=== PATIENT | female | born 1955 | race Caucasian/White ===

== ENCOUNTER → 2016-11-23 | Outpatient (CLI) | payer OTHER ==
--- NOTE | 2016-11-23 18:31 | PCVCIMAG ---
APPROVED REPORT Exam: Stress Echocardiogram Indication: abn EKG,DM,HTN,CHOL Patient Location: Echo lab Stress Nurse: Muna Velazquez RN Status: routine HR: 88 bpm Rhythm: NSR Medical History Medical History: Diabetes, HTN, Hyperlipidemia Cardiac Risk Factors: HTN, Hyperlipidemia, Diabetes (insulin) Previous Cardiac Procedures: NONE Pretest Chest Pain Characteristics: No chest pain Exercise History: Physically active Procedure The patient underwent an Exercise Stress Test using the Lars Protocol. Blood pressure, heart rate, and EKG were monitored. An Echocardiogram was performed by monogram technician in four stages in quad fashion. At peak stress, four selected images were obtained and placed side by side with resting images for comparison. Stress Test Details Stress Test: Exercise stress testing was performed using a Lars protocol. HR Resting HR: 88 bpmMax Heart Rate (APMHR): 159 bpm Max HR Achieved: 153 bpmTarget HR (85% APMHR): 135 bpm % of APMHR: 96 Recovery HR: 94 bpm HR response to stress: Normal HR response to stress BP Resting BP: 124/70 mmHg Max BP: 158/70 mmHg Recovery BP: 122/70 mmHg ECG Resting ECG: Sinus Rhythm- SHORT EPISODE A FIB SEEN AT REST Stress ECG: Sinus Rhythm ST Change: Non-ischemic Maximum ST Deviation: 1.1 mm Arrhythmia: Atrial fibrillation SEEN AT REST Recovery ECG: Sinus Rhythm Recovery ST Change: Non-ischemic Recovery Arrhythmia: None Clinical Reason for Termination: Maximal effort Stress Symptoms: NONE Exercise duration: 8 min 14 sec Highest Stage Achieved: Stage 3: 3.4 mph at 14% grade. Exercise capacity: 10.1 METs Overall Exercise Capacity for Age: Normal Scale: Active Angina Score: None Stress ECG Conclusion The patient exercised according to the LARS protocol for 8:14 minutes, achieving a work level of Max. METS: 10.1 The resting heart rate of 88 bpm kenya to a maximal heart rate of 153 This value represents 96% of the maximal, age-predicted heart rate. The resting blood pressure of 102/58 mmHg, kenya to a maximum blood pressure of 158/70 The exercise test was stopped due to fatigue. Lyons Treadmill Score is 2.5 which is Moderate risk. Pre-Stress Echo The resting Echocardiogram showed normal left ventricular contractility with an estimated Ejection Fraction of about 55-60%. Normal wall motion in all segments on baseline images. Post-Stress Echo The stress Echocardiogram showed normal left ventricular contractility with an estimated Ejection Fraction of about 65-70%. Normal augmentation of wall motion in all segments on post stress images. Clinical No clinical or ECG evidence for ischemia. Conclusion Clinical Response: Non-ischemic Exercise Capacity: Average Stress ECG Response: Non-ischemic Stress Echo Images: Non-ischemic No clinical, EKG or echocardiographic evidence for ischemia. No echocardiographic evidence for exercise induced ischemia. Atrial fibrillation was seen pre exercise but was not evoked during exercise. A monitor will be worn to check the frequency of atrial fibrillation episodes No prior study available for comparison. <Conclusion> No clinical, EKG or echocardiographic evidence for ischemia. No echocardiographic evidence for exercise induced ischemia. Atrial fibrillation was seen pre exercise but was not evoked during exercise. A monitor will be worn to check the frequency of atrial fibrillation episodes
== END | disposition home or self-care (01) ==
LOC: PCVCIMAG 14:23
PROVIDERS: ATTEND Internal Medicine Cardiovascular Disease
DX: I48.91 Unspecified atrial fibrillation (principal); E11.9 Type 2 diabetes mellitus without complications; E78.5 Hyperlipidemia, unspecified; I10 Essential (primary) hypertension; E78.00 Pure hypercholesterolemia, unspecified; R94.31 Abnormal electrocardiogram [ECG] [EKG]; Z95.5 Presence of coronary angioplasty implant and graft; Z79.82 Long term (current) use of aspirin
CPT/HCPCS: 93325; 93351

== ENCOUNTER → 2016-12-21 | Outpatient (CLI) | payer OTHER ==
--- NOTE | 2016-12-22 09:53 | PCVCIMAG ---
APPROVED REPORT Study performed: 12/21/2016 15:03:32 EXAM: Comprehensive 2D, Doppler, and color-flow Echocardiogram Patient Location: Echo lab Status: routine BSA: 1.97 HR: 75 bpm Rhythm: NSR Risk Factors: Cardiac Risk Factors: DM, Hyperlipidemia, HTN Indications Diabetes Atrial Fibrillation Hypertension/HDD 2D Dimensions LVEF(%): 81.49 (>50%) IVSd: 9.74 (7-11mm)LVOT Diam: 18.80 (18-24mm) LVDd: 46.58 mm PWd: 8.89 (7-11mm)Ascending Ao: 29.14 (22-36mm) LVDs: 23.22 (25-40mm) Left Atrium: 39.00 (27-40mm) Aortic Root: 26.32 mm LV Single Plane 4CH: 53.01 % LV Single Plane 2CH: 56.05 %Stoner's LVEF: 54.53 % Biplane EF: 54.2 % Volumes Left Atrial Volume (Systole) Single Plane 4CH: 50.54 mLSingle Plane 2CH: 63.85 mL Biplane LA Volume: 61.00 mLLA ESV Index: 31.00 mL/m2 Aortic Valve AoV Peak Erik.: 1.82 m/s AO Peak Gr.: 13.23 mmHgLVOT Max P.43 mmHg LVOT Max V: 1.22 m/s TREVON Vmax: 1.86 cm2 Mitral Valve E/A Ratio: 1.6 MV Decel. Time: 112.81 ms MV E Max Erik.: 0.87 m/s MV A Erik.: 0.54 m/s IVRT: 79.58 ms TDI E/Lateral E': 9.67E/Medial E': 10.88 Medial E' Erik.: 0.08 m/s Lateral E' Erik.: 0.09 m/s Pulmonary Valve PV Peak Erik.: 1.12 m/sPV Peak Gr.: 5.03 mmHg Pulmonary Vein P Vein S: 0.67 m/sP Vein A: 0.27 m/s P Vein D: 0.59 m/sP Vein A Dur.: 93.4 msec P Vein S/D Ratio: 1.14 Tricuspid Valve TR Peak Erik.: 2.56 m/s TR Peak Gr.: 26.12 mmHg TV Vmax: 0.64 m/sPA Pressure: 33.00 mmHg Left Ventricle The left ventricle is normal size. There is normal LV segmental wall motion. There is normal left ventricular wall thickness. Left ventricular systolic function is normal. The left ventricular ejection fraction is within the normal range. LVEF is 55-60%. The left ventricular diastolic function is normal. Right Ventricle The right ventricle is normal size. The right ventricular systolic function is normal. Atria Left atrium is borderline dilated. The right atrium size is normal. Aortic Valve The aortic valve is normal in structure. No aortic regurgitation is present. There is no aortic valvular stenosis. Mitral Valve The mitral valve is normal in structure. There is no mitral valve regurgitation noted. No evidence of mitral valve stenosis. Tricuspid Valve The tricuspid valve is normal in structure. Trace to mild tricuspid regurgitation with a PA pressure of 33mmHg. Pulmonic Valve The pulmonary valve is normal in structure. There is no pulmonic valvular regurgitation. Great Vessels The aortic root is normal in size. The ascending aorta is normal in size. IVC is normal in size and collapses with >50% inspiration Pericardium There is no pericardial effusion. There is no pleural effusion. <Conclusion> Left ventricular systolic function is normal. The left ventricular ejection fraction is within the normal range. LVEF is 55-60%. The left ventricular diastolic function is normal. The right ventricle is normal size. Left atrium is borderline dilated. The right atrium size is normal. The aortic valve is normal in structure. There is no mitral valve regurgitation noted. Trace to mild tricuspid regurgitation with a PA pressure of 33mmHg. There is no pericardial effusion.
== END | disposition home or self-care (01) ==
LOC: PCVCIMAG 15:03
PROVIDERS: ATTEND Internal Medicine Cardiovascular Disease
DX: I07.1 Rheumatic tricuspid insufficiency (principal); I48.0 Paroxysmal atrial fibrillation; I10 Essential (primary) hypertension; E78.5 Hyperlipidemia, unspecified; I25.10 Atherosclerotic heart disease of native coronary artery without angina pectoris; R93.1 Abnormal findings on diagnostic imaging of heart and coronary circulation; J44.9 Chronic obstructive pulmonary disease, unspecified; E11.9 Type 2 diabetes mellitus without complications; Z79.82 Long term (current) use of aspirin
CPT/HCPCS: 93306

== ENCOUNTER → 2018-01-03 | Outpatient (CLI) | payer OTHER ==
--- NOTE | 2018-01-03 19:01 | PCVCIMAG ---
APPROVED REPORT Study performed: 01/03/2018 14:11:10 EXAM: Comprehensive 2D, Doppler, and color-flow Echocardiogram Patient Location: Echo lab Status: routine BSA: 1.98 HR: 67 bpmBP: 124/74 mmHg Rhythm: NSR Other Information Study Quality: Adequate Risk Factors: Cardiac Risk Factors: HTN Indications Palpitations parox A fib 2D Dimensions LVEF(%): 71.86 (>50%) IVSd: 10.25 (7-11mm) LVDd: 43.32 mm PWd: 9.57 (7-11mm) LVDs: 25.65 (25-40mm) Left Atrium: 38.88 (27-40mm) Aortic Root: 26.62 mm LV Single Plane 4CH: 63.67 % LV Single Plane 2CH: 60.28 %Stoner's LVEF: 61.97 % Biplane EF: 62.6 % Volumes Left Atrial Volume (Systole) Single Plane 4CH: 71.34 mLSingle Plane 2CH: 53.10 mL LA ESV Index: 33.00 mL/m2 Aortic Valve AoV Peak Erik.: 1.71 m/s AO Peak Gr.: 11.64 mmHgLVOT Max P.68 mmHg LVOT Max V: 1.08 m/s Mitral Valve E/A Ratio: 1.8 MV Decel. Time: 210.16 ms MV E Max Erik.: 0.87 m/s MV A Erik.: 0.48 m/s IVRT: 93.43 ms Pulmonary Valve PV Peak Erik.: 0.98 m/sPV Peak Gr.: 3.86 mmHg Pulmonary Vein P Vein S: 0.47 m/sP Vein A: 0.32 m/s P Vein D: 0.62 m/sP Vein A Dur.: 138.4 msec P Vein S/D Ratio: 0.76 Tricuspid Valve TR Peak Erik.: 2.66 m/s TR Peak Gr.: 28.21 mmHg Left Ventricle The left ventricle is normal size. There is normal LV segmental wall motion. There is normal left ventricular wall thickness. Left ventricular systolic function is normal. The left ventricular ejection fraction is within the normal range. LVEF is 55-60%. The left ventricular diastolic function is normal. Right Ventricle The right ventricle is normal size. The right ventricular systolic function is normal. Atria The left atrium size is normal. The right atrium size is normal. Aortic Valve The aortic valve is normal in structure. No aortic regurgitation is present. There is no aortic valvular stenosis. Mitral Valve The mitral valve is normal in structure. Trace mitral regurgitation. No evidence of mitral valve stenosis. Tricuspid Valve The tricuspid valve is normal in structure. Mild tricuspid regurgitation with PAP of 35 mmHg. Pulmonic Valve The pulmonary valve is normal in structure. There is no pulmonic valvular regurgitation. Great Vessels The aortic root is normal in size. IVC is normal in size and collapses with >50% inspiration Pericardium There is no pericardial effusion. There is no pleural effusion. <Conclusion> The left ventricle is normal size. LVEF is 55-60%. The right ventricle is normal size. The left atrium size is normal. The aortic valve is normal in structure. Trace mitral regurgitation. Mild tricuspid regurgitation with PAP of 35 mmHg. The aortic root is normal in size. There is no pericardial effusion.
== END | disposition home or self-care (01) ==
LOC: PCVCIMAG 16:12
PROVIDERS: ATTEND Internal Medicine Cardiovascular Disease
DX: I07.1 Rheumatic tricuspid insufficiency (principal); I48.0 Paroxysmal atrial fibrillation; I10 Essential (primary) hypertension
CPT/HCPCS: 93306

== ENCOUNTER → 2018-03-20 | Outpatient (CLI) | payer OTHER ==
[~2018-03-20] MED LIST: BENZOCAINE ONE 20% MUCOSAL SPRAY.; IV NORMAL SALINE 500ML BAG 500 ML ONE; MIDAZOLAM HCL/PF 2 MG/2 ML VIAL. ONE; fentaNYL PF VIAL 100 MCG/2 ML VIAL ONE
--- NOTE | 2018-03-20 10:36 | PCVCIMAG ---
APPROVED REPORT Study performed: 03/20/2018 08:50:57 EXAM: Transesophageal Echocardiogram Patient Location: [facility] Room #: 1 Status: routine BSA: 1.98 HR: 77 bpmBP: 155/80 mmHg Rhythm: NSR Other Information Study Quality: Good Indications Atrial Fibrillation Echo Enhancing Agent Indication: Rule out Shunt Agent(s) / Amount(s) Used: Agitated Saline 10 cc Comments: Negative contrast study for shunt flow. Procedure After obtaining informed consent, patient underwent transesophageal echo in the [facility]. Type of Sedation : Conscious Sedation Sedation was administered by Ayana Schmid RN. Sedation start time: 09:51 Case end Time: 10:03 Sedation was achieved intravenously with: Versed (4mg) Fentanyl (100mcg) Transesophageal probe was inserted and advanced into esophagus without difficulty by Luís Li MD. Echo enhancement indication: R/O Septal defect. Echo enhancement agent administered: Agitated Saline The ESME was performed without complications. Throughout the procedure, the blood pressure, pulse oximetry, cardiac rhythm, and rate were monitored. The patient tolerated the procedure without adverse effects. Recovery from conscious sedation was uneventful and vital signs were stable. Left Ventricle The left ventricle is normal size. There is normal LV segmental wall motion. There is normal left ventricular wall thickness. Left ventricular systolic function is normal. The left ventricular ejection fraction is within the normal range. LVEF is 60-65%. This study is not technically sufficient to allow evaluation of the LV diastolic function. Right Ventricle The right ventricle is normal size. The right ventricular systolic function is normal. Atria The left atrium size is normal. No thrombus is visualized in the left atrium or appendage. Interatrial septum is intact without evidence of ASD or PFO. The right atrium size is normal. Aortic Valve The aortic valve is normal in structure. No aortic regurgitation is present. There is no aortic valvular stenosis. Mitral Valve The mitral valve is normal in structure. Mild mitral valve regurgitation. No evidence of mitral valve stenosis. Tricuspid Valve The tricuspid valve is normal in structure. There is no tricuspid valve regurgitation noted. Pulmonic Valve The pulmonary valve is normal in structure. There is no pulmonic valvular regurgitation. Great Vessels The aortic root is normal in size. The ascending aorta is normal in size. IVC is normal in size and collapses >50% with inspiration. Pericardium There is no pericardial effusion. <Conclusion> Left ventricular systolic function is normal. LVEF is 60-65%. Normal chamber sizes No thrombus is visualized in the left atrium or appendage. No shunting by contrast bubble injection The aortic valve is normal in structure. No aortic regurgitation sor stenosis The mitral valve is normal in structure. Mild mitral valve regurgitation. There is no pericardial effusion.
== END | disposition home or self-care (01) ==
LOC: PCVCINTER 09:39
PROVIDERS: ATTEND Internal Medicine Cardiovascular Disease
DX: I48.0 Paroxysmal atrial fibrillation (principal); I34.0 Nonrheumatic mitral (valve) insufficiency; E11.9 Type 2 diabetes mellitus without complications; I10 Essential (primary) hypertension; E78.5 Hyperlipidemia, unspecified; D64.9 Anemia, unspecified; Z86.010 Personal history of colon polyps; Z98.51 Tubal ligation status; Z98.890 Other specified postprocedural states; Z83.3 Family history of diabetes mellitus; Z82.49 Family history of ischemic heart disease and other diseases of the circulatory system; Z83.49 Family history of other endocrine, nutritional and metabolic diseases; Z83.6 Family history of other diseases of the respiratory system; Z81.8 Family history of other mental and behavioral disorders; Z72.89 Other problems related to lifestyle; Z79.899 Other long term (current) drug therapy; Z88.8 Allergy status to other drugs, medicaments and biological substances; Z79.84 Long term (current) use of oral hypoglycemic drugs
CPT/HCPCS: 93312; 93325; 99152; J2250; J3010; J7040